=== PATIENT | female | born 1930 | race Caucasian/White ===

== ENCOUNTER 2016-07-17 05:30 | Day surgery (SDC) | payer MEDICARE ==
[2016-07-14 15:07] LABS: BASOPHILS 0.6 % (0-2); EOSINOPHILS 1.6 % (0-7); HEMATOCRIT 41.5 % (36.0-48.0); IMMATURE GRANULOCYTES 0.2 % (0-5); LYMPHOCYTES 20.8 % (15-50); MCH 29.4 pg (26.0-34.0); MCHC 33.7 g/dL (31.0-37.0); MCV 87.2 fL (80.0-100.0); MEAN PLATELET VOLUME 10.5 fL (7.4-10.4); MONOCYTES 11.5 % (2-11); NEUTROPHILS 65.3 % (40-80); PLATELET COUNT 195 10x3/uL (130-400); RBC 4.76 10x6/uL (4.00-5.40); RDW 12.7 % (11.5-14.5); WBC 6.3 10x3/uL (4.8-10.8)
[2016-07-14 15:16] LABS: CALCIUM 9.1 mg/dL (8.5-10.1); CARBON DIOXIDE 33.3 mmol/L (21.0-32.0); CREATININE - SERUM 1.2 mg/dL (0.6-1.3); POTASSIUM - SERUM 4.3 mmol/L (3.5-5.1)
[~2016-07-17] VITALS: Ht 154.9 cm; Wt 63.5 kg
[~2016-07-17 05:30] MED LIST: ALENDRONATE SOD70 MG PO; HYDROCODONE-APA1 TAB PO; HYZAAR 100-12.51 TAB PO; NORCO 10/325 TA1 TA1 PO; NORVASC5 MG PO; PRAVACHOL40 MG PO; TOPROL XL50 MG PO
[2016-07-17 05:51] VITALS: BP 180/91; Ht 154.9 cm; Wt 63.5 kg
[2016-07-17] MEDS ORDERED: HYDROCODONE-APA1 TAB PO (08:31)
--- NOTE | 2016-07-17 09:53 | NUR ---
5288 DISCHARGE INSTRUCTIONS REVIEWED WITH PATIENT AND SLING APPLIED; VERBALIZED UNDERSTANDING
--- NOTE | 2016-07-17 14:41 | OP ---
PATIENT NAME: ROCKY COLÓN MEDICAL RECORD: [id number] :30 LOCATION:[facility] ADMISSION DATE: SURGEON: KODAK SERRANO MD DATE OF OPERATION: 07/17/2016 PREOPERATIVE DIAGNOSIS: Left trigger finger. POSTOPERATIVE DIAGNOSIS: Left trigger finger. PROCEDURE: A1 jacinto release of left trigger finger. SURGEON: Kodak Serrano MD. ANESTHESIA: General. INTRAOPERATIVE COMPLICATIONS: None. SUMMARY OF PATHOLOGIC FINDINGS: The patient had a very tight A1 jacinto with excoriation of the flexor tendon, but no complete tearing. OPERATIVE SUMMARY IN DETAIL: After obtaining the appropriate orthopedic surgery consent as well as anesthetic consultation, evaluation and clearance, the patient was brought to the operating room and placed on the operating table in supine position. After general laryngeal mask was administered, tourniquet was placed about the proximal aspect of the left upper extremity. Left upper extremity was then prepped and draped in a routine sterile fashion. Leg arm was elevated and exsanguinated, tourniquet inflated to 250 mmHg. An incision was made at the base of the A1 jacinto. Dissection was carried down to the A1 jacinto. Care was taken to identify both digital nerves. The A1 jacinto was released in its entirety. The wound was then irrigated and closed with 4-0 Prolene. The area was locally injected with half and half lidocaine and Marcaine. Sterile dressings were applied. Tourniquet was deflated. The patient was awakened and taken to recovery room in stable condition. All final needle and sponge counts were correct. TRANSINT:[id number] Voice Confirmation ID: [id number] DOCUMENT ID: [id number] KODAK SERRANO MD at 1441 CC: [id number] DICTATION DATE: 07/17/16 0829 AGENCY CASHIER: 07/17/16 1434 [facility] 07/17/16 [place] [id number]
== END 2016-07-17 09:45 | disposition home or self-care (01) ==
LOC: D.OPS 05:30 → D.PAN 09:00 → D.OPS 09:00
PROVIDERS: Anesthesiology
DX: M65.342 Trigger finger, left ring finger (principal); I10 Essential (primary) hypertension; Z95.0 Presence of cardiac pacemaker; Z01.812 Encounter for preprocedural laboratory examination

== ENCOUNTER 2017-10-22 17:47 | Emergency (ER) | payer MEDICARE ==
[~2017-10-22] VITALS: Ht 154.9 cm; Wt 59.1 kg
[2017-10-22 18:02] VITALS: Ht 154.9 cm; Wt 59.1 kg
[2017-10-22 21:24] LABS: BASOPHILS 0.2 % (0-2); EOSINOPHILS 2.3 % (0-7); HEMATOCRIT 42.2 % (36.0-48.0); HEMOGLOBIN 14.7 g/dL (12-16); IMMATURE GRANULOCYTES 0.2 % (0-5); MCHC 34.8 g/dL (31.0-37.0); MCV 86.1 fL (80.0-100.0); MEAN PLATELET VOLUME 9.8 fL (7.4-10.4); NEUTROPHILS 69.3 % (40-80); PLATELET COUNT 197 10x3/uL (130-400); RDW 12.7 % (11.5-14.5)
[2017-10-22 22:06] LABS: ALBUMIN 3.6 g/dL (3.4-5.0); ALKALINE PHOSPHATASE 65 U/L (46-116); ALT (SGPT) 28 U/L (10-68); BILIRUBIN - TOTAL 0.46 mg/dL (0.2-1.3); CALC OSMOLALITY 292 mosm/kg (275-300); CALCIUM 9.4 mg/dL (8.5-10.1); CARBON DIOXIDE 32.6 mmol/L (21.0-32.0); CHLORIDE - SERUM 101 mmol/L (98-107); GLUCOSE 110 mg/dL (74-106); SODIUM 142 mmol/L (136-145); UREA NITROGEN 38 mg/dL (7-18); eGFR NON AFRICAN AMERICAN 56 mL/min (90-120)
[2017-10-22 22:10] LABS: TROPONIN-I < 0.017 ng/mL (0.000-0.060)
[2017-10-23 00:13] VITALS: BP 182/90
== END 2017-10-23 00:13 | disposition home or self-care (01) ==
LOC: D.ER 17:47
PROVIDERS: Family Medicine
DX: S01.01XA Laceration without foreign body of scalp, initial encounter (principal); W18.30XA Fall on same level, unspecified, initial encounter; Y93.89 Activity, other specified; Y92.017 Garden or yard in single-family (private) house as the place of occurrence of the external cause; R42 Dizziness and giddiness; I10 Essential (primary) hypertension; Z95.0 Presence of cardiac pacemaker

== ENCOUNTER 2018-04-05 13:38 | Observation (INO) | payer MEDICARE ==
[~2018-04-05] VITALS: Ht 154.9 cm; Wt 60.5 kg
[2018-04-05 13:53] VITALS: BP 188/72
[2018-04-05] MEDS ORDERED: PRINZIDE 20/12.1 TA1 PO (13:54)
[2018-04-05] MEDS ORDERED: BETAPACE 80 MG80 MG PO (13:55)
--- NOTE | 2018-04-05 14:25 | NUR ---
REP WITH [employer] CALLED AND SAID THE PATIENT'S PACEMAKER CHECKED OUT NORMAL WITH NO EVENTS AND A BATTERY LIFE OF 9.5 YEARS.
[2018-04-05 14:40] LABS: BASOPHILS 0.5 % (0-2); EOSINOPHILS 1.3 % (0-7); HEMATOCRIT 40.6 % (36.0-48.0); HEMOGLOBIN 14.2 g/dL (12-16); IMMATURE GRANULOCYTES 0.2 % (0-5); LYMPHOCYTES 15.1 % (15-50); MCH 29.9 pg (26.0-34.0); MCV 85.5 fL (80.0-100.0); MEAN PLATELET VOLUME 9.9 fL (7.4-10.4); MONOCYTES 8.9 % (2-11); PLATELET COUNT 231 10x3/uL (130-400); RBC 4.75 10x6/uL (4.00-5.40); RDW 12.2 % (11.5-14.5); WBC 9.2 10x3/uL (4.8-10.8)
[2018-04-05 14:56] LABS: ALBUMIN 3.5 g/dL (3.4-5.0); ALKALINE PHOSPHATASE 58 U/L (46-116); ALT (SGPT) 28 U/L (10-68); BILIRUBIN - TOTAL 0.44 mg/dL (0.2-1.3); CALC OSMOLALITY 273 mosm/kg (275-300); CALCIUM 9.3 mg/dL (8.5-10.1); CARBON DIOXIDE 31.8 mmol/L (21.0-32.0); CHLORIDE - SERUM 96 mmol/L (98-107); GLUCOSE 101 mg/dL (74-106); POTASSIUM - SERUM 4.2 mmol/L (3.5-5.1); PROTEIN - SERUM 7.1 g/dL (6.4-8.2); SODIUM 135 mmol/L (136-145); UREA NITROGEN 24 mg/dL (7-18); eGFR NON AFRICAN AMERICAN 55 mL/min (90-120)
[2018-04-05 15:00] LABS: APTT 31.4 SECONDS (22.8-39.4); INR 0.99 (0.85-1.17); PROTIME 12.6 SECONDS (11.6-15.0)
[2018-04-05 15:13] LABS: CKMB 3.6 U/L (0.0-3.6); CREATINE KINASE 84 UL (21-215); MAGNESIUM - SERUM 2.1 mg/dL (1.8-2.4)
[2018-04-05 15:17] LABS: TROPONIN-I 0.728 ng/mL (0.000-0.060)
--- NOTE | 2018-04-05 15:25 | NUR ---
CRITICAL LAB CALLED FROM [facility]KEY: TROPONIN 0.728. ALEX INFORMED AND DR. LINDA NOTIFIED.
[2018-04-05 15:50] VITALS: BP 163/95
--- NOTE | 2018-04-05 16:18 | NUR ---
CARDIOLOGY AT BEDSIDE.
[2018-04-05 17:13] LABS: CREATINE KINASE 88 UL (21-215)
[2018-04-05 17:22] LABS: TROPONIN-I 0.916 ng/mL (0.000-0.060)
[2018-04-05 18:12] VITALS: BP 220/106; BMI 25.3
--- NOTE | 2018-04-05 20:05 | NUR ---
INITIAL ROUNDS COMPLETED AT 1910 HRS. PT DENIED ANY DISCOMFORT. ASSESSMENT COMPLETED AT 1950 HRS. VSS. SR PER CM HR 80. ALERT AND ORIENTED TO PERSON, PLACE AND TIME. IV TO LAC SL. O2 2LNC. LUNGS CTA. JOHN. SR UP X2, CALL LIGHT WITHIN REACH.
[2018-04-05 20:06] VITALS: BP 128/68
--- NOTE | 2018-04-05 23:00 | NUR ---
PM MEDS GIVEN PER ORDERS. PT CURRENTLY RESTING WITH EYES CLOSED. RESP EVEN AND REGULAR. SRUP X2, CALL LIGHT WITHIN REACH.
[2018-04-05 23:10] LABS: CKMB 4.3 U/L (0.0-3.6); CREATINE KINASE 82 UL (21-215)
[2018-04-05 23:11] LABS: TROPONIN-I 0.985 ng/mL (0.000-0.060)
[2018-04-06 00:38] VITALS: BP 129/75
--- NOTE | 2018-04-06 01:41 | NUR ---
PT RESTING WITH EYES CLOSED. RESP EVEN AND REGULAR. SR UP X2, CALL LIGHT WITHIN REACH.
[2018-04-06 02:12] LABS: BASOPHILS 0.5 % (0-2); EOSINOPHILS 1.8 % (0-7); HEMATOCRIT 38.2 % (36.0-48.0); HEMOGLOBIN 13.4 g/dL (12-16); IMMATURE GRANULOCYTES 0.1 % (0-5); LYMPHOCYTES 22.1 % (15-50); MCH 29.9 pg (26.0-34.0); MCHC 35.1 g/dL (31.0-37.0); MCV 85.3 fL (80.0-100.0); MEAN PLATELET VOLUME 9.7 fL (7.4-10.4); MONOCYTES 9.5 % (2-11); PLATELET COUNT 204 10x3/uL (130-400); RBC 4.48 10x6/uL (4.00-5.40); RDW 12.2 % (11.5-14.5); WBC 8.7 10x3/uL (4.8-10.8)
[2018-04-06 02:21] LABS: CALC OSMOLALITY 269 mosm/kg (275-300); CALCIUM 8.7 mg/dL (8.5-10.1); CARBON DIOXIDE 31.2 mmol/L (21.0-32.0); CHLORIDE - SERUM 96 mmol/L (98-107); CKMB 3.4 U/L (0.0-3.6); CREATINE KINASE 68 UL (21-215); CREATININE - SERUM 1.1 mg/dL (0.6-1.3); GLUCOSE 98 mg/dL (74-106); POTASSIUM - SERUM 4.1 mmol/L (3.5-5.1); SODIUM 133 mmol/L (136-145); UREA NITROGEN 23 mg/dL (7-18); eGFR NON AFRICAN AMERICAN 50 mL/min (90-120)
[2018-04-06 02:27] LABS: TROPONIN-I 0.864 ng/mL (0.000-0.060)
--- NOTE | 2018-04-06 04:16 | NUR ---
PT RESTING WITH EYES CLOSED. RESP EVEN AND REGULAR. SR UP X2, CALL LIGHT WITHIN REACH.
[2018-04-06 04:29] VITALS: BP 101/53
--- NOTE | 2018-04-06 05:55 | NUR ---
VSS THROUGHOUT NIGHT. PT DENIED ANY DISCOMFORT. PT NPO UNTIL SEEN [facility] CARDIOLOGY THIS AM. NEEDS MET; WILL CONTINUE TO MONITOR.
--- NOTE | 2018-04-06 07:30 | NUR ---
RECEIVED PT IN BED AAOX4 RESP UNLABORED SKIN W/D DENIES ANY NEEDS OR DISCOMFORT WILL CONTINUE TO MONITOR
[2018-04-06 08:16] VITALS: Ht 154.9 cm; Wt 60.5 kg
[2018-04-06 10:50] VITALS: BP 142/52
[2018-04-06 20:28] LABS: APPEARANCE CLEAR (CLEAR); BILIRUBIN NEGATIVE (NEGATIVE); COLOR YELLOW (YELLOW); GLUCOSE NEGATIVE (NEGATIVE); KETONE NEGATIVE (NEGATIVE); NITRITE NEGATIVE (NEGATIVE); PROTEIN NEGATIVE (NEGATIVE); UROBILINOGEN NORMAL (NORMAL)
[2018-04-06 21:32] VITALS: BP 125/68
--- NOTE | 2018-04-06 21:49 | NUR ---
INITIAL ORUNDS COMPLETED AT 1910 HRS. PT DENIED ANY DISCOMFORT. ASSESSMENT COMPLETED AT 1945 HRS. VSS. SR/PACED PER CM HR 67. IV TO LAC SL. LUNGS CTA. PT UP AD MAYANK. GAIT EVEN AND STEADY. PM MEDS GIVEN. PT CURRENTLY RESTING WITH EYES CLOSED. RESP EVEN AND REGULAR. SR UP X2, CALL LIGHT WITHIN REACH.
[2018-04-06 23:55] VITALS: BP 125/57
--- NOTE | 2018-04-07 00:06 | NUR ---
PT RESTING WITH EYES CLOSED. RESP EVEN AND REGULAR. SR UP X2, CALL LIGHT WITHIN REACH.
--- NOTE | 2018-04-07 02:10 | NUR ---
PT RESTING WITH EYES CLOSED. RESP EVEN AND REGULAR. SR UP X2, CALL LIGHT WITHIN REACH.
[2018-04-07 03:55] VITALS: BP 137/52
--- NOTE | 2018-04-07 04:57 | NUR ---
VSS. PT DENIED JJ DISCOMFORT. CALL LIGHT WITHIN REACH.
--- NOTE | 2018-04-07 05:36 | NUR ---
VSS THROUGHOUT NIGHT. SR/PACED PER CM. PT DENIED ANY DISCOMFORT. NEEDS MET; WILL CONTINUE TO MONITOR.
--- NOTE | 2018-04-07 07:00 | NUR ---
RECEIVED REPORT. ASSUMED CARE OF PATIENT. CALL LIGHT WITHIN REACH. PATIENT SITTING TO SIDE OF BED WITH ATTENTION TOWARD ELECTRONIC TABLET PLAYING A CARD GAME. RESP EVEN AND UNLABORED. DENIES CHEST PAIN. NO DISTRESS.
[2018-04-07 09:40] VITALS: BP 110/70
--- NOTE | 2018-04-07 10:49 | NUR ---
20 GAUGE IV REMOVED FROM LEFT AC. CATHETER TIP INTACT. NO BLEEDING FROM SITE. TOLERATED IV REMOVAL WELL. PATIENT BEING DISCHARGED TO HOME. DISCHARGE INSTRUCTIONS PROVIDED AT 1045. WENT OVER DISCHARGE INSTRUCTIONS AND MEDICATIONS TWICE. PATIENT VERBALIZED UNDERSTANDING OF MEDICATIONS, NPO AFTER MN, TO RETURN TO OUTPATIENT AT 0800 IN THE AM FOR HEARTCATH AT 1000.
--- NOTE | 2018-04-07 10:59 | NUR ---
PATIENT LEFT UNIT VIA WHEELCHAIR WITH ALL PERSONAL BELONGINGS. PATIENT LEFT UNIT IN NO DISTRESS. PATIENT DISCHARGED TO HOME WITH HER .
--- NOTE | 2018-04-08 08:16 | MORECARE ---
CASE MANAGEMENT DISCHARGE SUMMARY PATIENT: ROCKY COLÓN UNIT: [id number] ADM DATE: 04/05/18 AGE: 87 : 30 SEX: F ROOM/BED: D.3753 AUTHOR: GILMA SPAIN PHYSICIAN: REFERRING PHYSICIAN: DARRYL CORDON M.D. DATE OF SERVICE: 04/08/18 Discharge Plan Patient Name: ROCKY COLÓN Facility: [facility]:[place] : 1930 Planned Disposition: Home Anticipated Discharge Date: 04/07/18 Discharge Date: 04/07/2018 Expected LOS: 2 Initial Reviewer: [email or web address] Initial Review Date: 04/08/2018 Generated: 04/08/18 9:16 am Patient Name: ROCKY COLÓN Page [id number] at 0816 All edits/amendments must be made on the electronic document DICTATION DATE: 04/08/18814 TUMBLERS SUPERVISOR: JENNIFFER 04/08/18814 RPT#: [id number] DC DATE:04/07/18 STATUS: DIS IN [facility] [address] [place] [address] END OF REPORT
== END 2018-04-07 10:55 | disposition home or self-care (01) ==
LOC: D.ER 13:38 → D.EDHOLD 16:54 → D.M2 16:54 → OBSVTIME 04-07 10:50 → D.M2 04-07 10:55
PROVIDERS: Family Medicine; ADMIT Internal Medicine Cardiovascular Disease
DX: I20.0 Unstable angina (principal); I10 Essential (primary) hypertension; Z95.0 Presence of cardiac pacemaker; I48.0 Paroxysmal atrial fibrillation; R79.89 Other specified abnormal findings of blood chemistry

== ENCOUNTER 2018-04-08 09:21 | Outpatient (CLI) | payer MEDICARE ==
[~2018-04-08] VITALS: Ht 154.9 cm; Wt 60.9 kg
--- NOTE | ~2018-04-08 | HEMODYNAMI ---
PATIENT:ROCKY COLÓN MEDICAL RECORD: [id number] : 30 LOCATION:[facility] ADMISSION DATE: 04/08/18 Generatedon:04/08/201811:14 Patient name: ROCKY COLÓN Patient #: [id number] SSN: : 1930 Date of study: 04/08/2018 Page: Of Hemodynamic Procedure Report Patient Data Patient Demographics Procedure consent was obtained First Name: ROCKY Gender: Female Last Name: ELDON : 1930 [facility] Initial: J Age: 87 year(s) Patient #: [id number] Race: Unknown Additional ID: [id number] Contact details [address]: [address] [place] [address] [place] [place] State: [place] City: [facility] Zip code: [address] Past Medical History Allergies: No known allergies Admission Admission Data Admission Date: 04/08/2018 Admission Time: 9:21 Admit Source: Other Height (in.): 60.63 Height (cm.): 154 Lab Results Lab Result Date: 04/08/2018 Lab Result Time: 10:05 Biochemistry Name Units Result Min Max BUN mg/dl 27 --(----)-* 7 18 Creatinine mg/dl 1 --(--*-)-- 0.6 1.3 CBC Name Units Result Min Max Hematocrit % 40.9 -*(----)-- 42 54 Hemoglobin g/dl 14.4 --(*---)-- 13.5 17.5 Procedure Procedure Types Cath Procedure Diagnostic Procedure LHC LHC w/Coronaries Procedure Description Procedure Date Procedure Date: 04/08/2018 Procedure Start Time: 11:01 Procedure End Time: 11:14 Procedure Staff Name Function Fredrick Galarza MD Performing Physician Patricio Pryor RT Monitor Arcelia Ibrahim RT Scrub Teetee Esposito RN Nurse Procedure Data Cath Procedure Fluoroscopy Diagnostic fluoroscopy Total fluoroscopy Time: 1.4 time: 1.4 min min Diagnostic fluoroscopy Total fluoroscopy dose: 243 dose: 243 mGy mGy Contrast Material Contrast Material Type Amount (ml) Isovue 300 45 Entry Location Entry Primary Successful Side Size Upsize Upsize Entry Closure Succes sful Closure Location (Fr) 1 (Fr) 2 (Fr) Remarks Device Remarks Femoral Right 5 Fr Exoseal artery Estimated blood loss: 5 ml Diagnostic catheters Device Type Used For End Catheter Placement MULTIPACK JL 4.0 5Fr Procedure catheter MULTIPACK 3DRC 5Fr Procedure catheter MULTIPACK Pigtail 5 Fr Procedure catheter Procedure Complications No complications Procedure Medications Medication Administration Route Dosage 0.9% NaCl I.V. 100 ml/hr Oxygen etCO2 Nasal cannula 2 l/min Lidocaine 2% added to field 20 Heparin Flush Bag added to field 2 bags (1000units/500ml NS) Versed I.V. 2 mg Fentanyl I.V. 25 mcg Hemodynamics Rest HGB: 14.4 (g/dl) Heart Rate: 68 (bpm) Pressure Samples Time Site Value (mmHg) Purpose Heart Use Rate(bpm) 11:06 LV 181/-43,12 Snapshot 77 11:07 AO 163/58(99) Pullback 72 11:07 LV 170/1,15 Pullback 72 Gradients Valve Time Site 1 Site 2 Mean SEP/DFP Peak To Heart Use (mmHg) (sec/min) Peak Rate (mmHg) (bpm) Aortic 11:07 LV AO 10 24 7 72 170/1,15 163/58(99) Calculations Valve P-P Mean Valve Index Valve Source Name Gradient Area Flow (cm2) Aortic 7 10 7 10 Snapshots Pre Cath Intra NCS Post Cath Vital Signs Time Heart Resp SPO2 etCO2 NIBP (mmHg) Rhythm Pain Sedation Rate (ipm) (%) (mmHg) Status Level (bpm) 10:53:52 70 18 100 23.8 206/87(119) NSR 0 (11) 10(A) , No pain 10:58:22 72 14 99 25.6 159/82(124) NSR 0 (11) 10(A) , No pain 11:02:44 65 12 98 26.7 150/74(93) NSR 0 (11) 9(A) , No pain 11:07:10 73 11 99 25.4 140/71(106) NSR 0 (11) 9(A) , No pain 11:12:30 64 13 99 26.8 151/70(120) NSR 0 (11) 10(A) , No pain Medications Time Medication Route Dose Verified Delivered Reason Notes Eff ectiveness by by 10:52:38 0.9% NaCl I.V. 100 Fredrick Teetee used for ml/hr Geovanni Esposito public health social worker 10:52:44 Oxygen etCO2 2 Fredrick Teetee used for Nasal l/min Geovanni Esposito procedure cannula RN 10:52:50 Lidocaine 2% added 20ml Fredrick Fredrick for local to vial Geovanni Galarza MD anesthetic field 10:52:55 Heparin Flush added 2 Fredrick Fredrick used for Bag to bags Geovanni Galarza MD procedure (1000units/500ml field NS) 10:57:11 Versed I.V. 2 mg Fredrick Teetee for Geovanni Esposito sedation RN 10:57:16 Fentanyl I.V. 25 Fredrick Teetee for mcg Geovanni Esposito sedation superintendent plant Log Time Note 10:39:23 Informed consent obtained and on chart 10:39:26 Admit Source: Other 10:39:45 Diagnostic Cath status Elective 10:39:47 Arcelia Ibrahim RT(R) sent for patient. Start room use. 10:39:48 Time tracking: Regular hours (M-F 7:00 - 5:00) 10:39:51 Plan of Care:Hemodynamics will remain stable., Cardiac rhythm will remain stable., Comfort level will be maintained., Respiratory function will remain adequate., Patient/ family verbilizes understanding of procedure., Procedure tolerated without complication., Recovers from procedure without complications.. 10:40:22 Patient Height : 60.63 inches 10:45:13 Patient received from Pre/Post Procedure Room to CCL 1 Alert and oriented. Tansferred to table in Supine position. 10:45:15 Warm blankets applied, and sherry hugger turned on for patient comfort. 10:45:15 Correct patient and procedure confirmed by team. 10:45:16 ECG and BP/O2 sat monitors applied to patient. 10:45:17 Pre-procedure instructions explained to patient. 10:45:17 Pre-op teaching completed and patient verbalized understanding. 10:45:28 H&P Date Dictated: 04/05/2018 Within 30 days and on chart., H&P Addendum completed by physician on day of procedure. (MUST COMPLETE FOR ALL OUTPATIENTS). 10:45:31 Family in waiting room. 10:45:32 Patient NPO since Midnight. 10:45:38 Patient allergic to No known allergies 10:51:21 Vital chart was started 10::38 0.9% NaCl 100 ml/hr I.V. was administered by Teetee Esposito RN; used for procedure; 10:52:44 Oxygen 2 l/min etCO2 Nasal cannula was administered by Teetee Esposito RN; used for procedure; 10::50 Lidocaine 2% 20ml vial added to field was administered by Fredrick Galarza MD; for local anesthetic; 10:52:55 Heparin Flush Bag (1000units/500ml NS) 2 bags added to field was administered by Fredrick Galarza MD; used for procedure; 10:55:22 Baseline sample Acquired. 10:55:29 Rhythm: sinus rhythm , paced 10:55:32 Is the patient allergic to Iodine/contrast media? No. 10:55:34 Is patient on blood thinner?No 10:55:35 Patient diabetic? No. 10:55:38 Previous problem with sedation/anesthesia? No ? 10:55:41 Snore? No 10:55:42 Sleep apnea? No 10:55:43 Deviated septum? No 10:55:43 Opens mouth fully? Yes 10:55:44 Sticks out tongue? Yes 10:55:46 Airway obstruction? No ? 10:55:49 Dentures? No ? 10:55:51 Pre procedure: right dorsailis pedis pulse 1+ Palpable, but thready & weak; easily obliterated 10:55:56 Patient pain scale 0/10 ?. 10:56:00 IV patent on arrival in left forearm with 0.9% NaCl at [facility]. 10:56:30 Lab Result : BUN 27 mg/dl 10:56:30 Lab Result : Creatinine 1 mg/dl 10:56:30 Lab Result : Hematocrit 40.9 % 10:56:30 Lab Result : Hemoglobin 14.4 g/dl 10:56:32 Lab results completed and on chart. 10:56:35 Right groin area was prepped with chlora-prep and draped in sterile fashion 10:56:36 Alarms reviewed by R. N. 10:56:36 Sharps counted by scrub and verified by R.N. 10:56:39 Use device set Femoral Dx 10:56:40 ACIST Syringe (33937) opened to sterile field. 10:56:40 Bag Decanter (2002S) opened to sterile field. 10:56:42 ACIST Manifold (29333) opened to sterile field. 10:56:43 ACIST Hand Control (20075) opened to sterile field. 10:56:45 Tegaderm 4 x 4 (1626W) opened to sterile field. 10:56:45 SHEATH 5FR [place] (JYT245) opened to sterile field. 10:56:47 DIAGNOSTIC Multipack 5Fr catheter set (BD4203) opened to sterile field. 10:56:48 Medline Cath Pack ([id number]) opened to sterile field. 10:56:49 DIAGNOSTIC WIRE .035 260cm J wire (559357) opened to sterile field. 10:56:54 Physician arrived 10:56:54 --------ALL STOP TIME OUT------ 10:56:55 Final Timeout: patient, procedure, and site verified with staff and physician. All members of the team are in agreement. 10:56:56 Right groin site verified by team. 10:56:58 Physical assessment completed. ASA score P 2 - A patient with mild systemic disease as per Fredrick Galarza MD. 10:57:00 Sedation plan: IV Moderate Sedation Medication:Versed, Fentanyl 10:57:11 Versed 2 mg I.V. was administered by Teetee Esposito RN; for sedation; 10:57:16 Fentanyl 25 mcg I.V. was administered by Teetee Esposito RN; for sedation; 11:00:13 Zero performed for pressure channel P1 11:01:05 Procedure started. 11:01:05 Full Disclosure recording started 11:01:08 Local anesthetic to right femoral artery with Lidocaine 2% by Fredrick Galarza MD.INITIAL ACCESS ONLY 11:01:30 A 5 Fr sheath was inserted into the Right Femoral artery 11:01:48 A MULTIPACK JL 4.0 5Fr catheter was advanced over the wire and used for Procedure. 11:02:32 LCA angiography performed. 11:04:09 Catheter exchanged over wire. 11:04:14 A MULTIPACK 3DRC 5Fr catheter was advanced over the wire and used for Procedure. 11:05:04 RCA angiography performed. 11:05:40 Catheter exchanged over wire. 11:05:47 A MULTIPACK Pigtail 5 Fr catheter was advanced over the wire and used for Procedure. 11:07:03 LV gram done using NERI 11:07:06 Injector settings: Ml/sec: 10, Volume: 20, 11:07:15 EF : 55 % 11:07:17 LV hemodynamics recorded. 11:09:10 Catheter removed. 11:09:15 EXOSEAL 5Fr (EX500) opened to sterile field. 11:09:22 Sheath removed intact; hemostasis achieved with Exoseal to the Right Femoral artery. 11:09:24 Procedure ended.(Physican Out) 11:13:05 Fluoroscopy time 01.40 minutes. 11:13:10 Fluoroscopy dose: 243 mGy 11:13: Flurop Dose total: 243 11:13: Contrast amount:Isovue 300 45ml. 11:13:14 Sharps counted by scrub and verified by R.N. 11:13:15 Insertion/operative site no bleeding no hematoma. 11:13:17 Post-op/insertion site Right Femoral artery dressed using a 4 x 4 and Tegaderm. 11:13:19 Post right femoral artery:stable, soft, clean and dry 11:13:21 Post Procedure Pulses reassessed and unchanged 11:13:23 Post-procedure physical assessment completed. ASA score P 2 - A patient with mild systemic disease as per Fredrick Galarza MD. 11:13:25 Post procedure rhythm: unchanged. 11:13:29 Estimated blood loss: 5 ml 11:13:30 Post procedure instruction explained to patient.Patient verbalizes understanding. 11:13:31 Patient needs reinforcement of post procedure teaching. 11:14:16 Procedure and supply charges have been captured, reviewed, submitted and are correct. 11:14:18 Procedure Complication : No complications 11:14:20 Vital chart was stopped 11:14:20 See physician's report for complete and final results. 11:14:21 Report given to Pre/Post Procedure Room. 11:14:23 Patient transfered to Pre/Post Procedure Room with Stretcher. 11:14:25 Procedure ended. 11:14:25 Full Disclosure recording stopped 11:14:28 End room use (Document Last) Device Usage Item Name Manufacture Quantity Catalog Hospital Part Current Minimal L ot# / Number Charge Number Stock Stock Serial# Code [facility] 1 96836 [id number] 535463 993790 20 Syringe Medical (68934) Systems Inc Bag Microtek 1 2001S 033016 54183 369727 5 Decanter Medical Inc. (2001S) ACIST Acist 1 47603 221227 996351 780145 5 Manifold Medical (96366) Systems Inc ACIST Hand Acist 1 16413 611453 168027 420326 5 Control Medical (91181) Systems Inc Tegaderm 4 3M 1 1626W 677161 602585 584568 5 x 4 (1626W) SHEATH 5FR Terumo 1 [id number] 278084 969898 672085 5 [place] (CQS054) DIAGNOSTIC Cardinal 1 CG9197 229698 42226 228113 30 Multipack Health 5Fr catheter set (KQ1863) Medline Medline 1 [id number] 538499 43513 993624 5 Cath Pack ([id number]) DIAGNOSTIC St Jerry 1 945623 116851 030353 718408 30 WIRE .035 260cm J wire (562691) MULTIPACK Cardinal 1 123889 5 JL 4.0 5Fr Health catheter MULTIPACK Cardinal 1 347895 5 3DRC 5Fr Health catheter MULTIPACK Cardinal 1 456499 5 Pigtail 5 Health Fr catheter EXOSEAL 5Fr Cardinal 1 EX500 029301 997746 423847 10 (EX500) Health Signature Audit [place] Stage Time Signature Unsigned Intra-Procedure 04/08/2018 Patricio Pryor 11:14:48 AM RT(R) Signatures Monitor : Patricio Pryor RT Signature : Date : Time : [place] [address] [place] [address]
[~2018-04-08 09:21] MED LIST changes: +BETAPACE 80 MG80 MG PO; +PRINZIDE 20/12.1 TA1 PO
[2018-04-08 09:53] VITALS: BP 166/67; Ht 154.9 cm; Wt 60.9 kg
[2018-04-08 10:11] LABS: BASOPHILS 0.5 % (0-2); EOSINOPHILS 1.1 % (0-7); HEMATOCRIT 40.9 % (36.0-48.0); HEMOGLOBIN 14.4 g/dL (12-16); IMMATURE GRANULOCYTES 0.2 % (0-5); LYMPHOCYTES 16.3 % (15-50); MCH 29.2 pg (26.0-34.0); MCHC 35.2 g/dL (31.0-37.0); MONOCYTES 8.5 % (2-11); NEUTROPHILS 73.4 % (40-80); RBC 4.93 10x6/uL (4.00-5.40); RDW 12.3 % (11.5-14.5); WBC 9.4 10x3/uL (4.8-10.8)
[2018-04-08 10:19] LABS: PLATELET COUNT 254 10x3/uL (130-400)
[2018-04-08 10:25] LABS: ANION GAP 15.2 mmol/L (8-16); CALCIUM 9.1 mg/dL (8.5-10.1); CARBON DIOXIDE 27.1 mmol/L (21.0-32.0); POTASSIUM - SERUM 3.3 mmol/L (3.5-5.1)
--- NOTE | 2018-04-08 11:40 | NUR ---
DR. CORDON ROUNDED. NO FAMILY AT BEDSIDE AND PT STILL SLEEPING. HE REPORTS HE WILL CALL THE .
--- NOTE | 2018-04-08 12:05 | NUR ---
RIGHT GROIN DRESSING C/D/I. NO S/S OF HEMATOMA NOTED. VSS. RIGHT PEDAL PULSE PALPABLE.
--- NOTE | 2018-04-08 12:20 | NUR ---
RIGHT GROIN DRESSING C/D/I. NO S/S OF HEMATOMA NOTED. VSS. RIGHT PEDAL PULSE PALPABLE. HEAD OF BED INCREASED TO 30 DEGREES. TOLERATED WELL. SET UP WITH LUNCH TRAY.
--- NOTE | 2018-04-08 12:49 | NUR ---
CALLED AND SPOKE WITH PT'S . HE STATES THAT HE WILL BE AT THE HOSPITAL AT 1:30 TO A R COLLECTIONS REP HIS . PT'S RIGHT GROIN DRESSING C/D/I. NO S/S OF HEMATOMA NOTED. VSS AT THIS TIME. TOLERATING FOOD AND WATER.
--- NOTE | 2018-04-08 13:20 | NUR ---
LEFT HAND PIV D/C'D WITH CATH TIP INTACT. PT TOLERATED WELL. PT UP AND DRESSED. TAKEN TO RESTROOM AND VOIDED WITHOUT DIFFICUTLTY.
--- NOTE | 2018-04-08 13:35 | NUR ---
DISCUSSED DISCHARGE INSTRUCTIONS WITH PT. SHE VOICED UNDERSTANDING. RIGHT GROIN DRESSING C/D/I. NO S/S OF HEMATOMA NOTED.
--- NOTE | 2018-04-08 13:40 | NUR ---
DR. CORDON SPOKE WITH PT REGARDING PLAN OF CARE. TO SEE HER BACK IN OFFICE IN 1 WEEK. PT TAKEN OUT TO VEHICLE BY WHEELCHAIR. NO S/S OF DISTRESS NOTED.
== END 2018-04-08 13:40 | disposition home or self-care (01) ==
LOC: D.CATH 09:21
PROVIDERS: Internal Medicine Cardiovascular Disease
DX: I25.110 Atherosclerotic heart disease of native coronary artery with unstable angina pectoris (principal); Z01.812 Encounter for preprocedural laboratory examination

== ENCOUNTER 2018-04-23 08:06 | Inpatient (IN) | payer MEDICARE ==
[~2018-04-23] VITALS: Ht 154.9 cm; Wt 63.6 kg
--- NOTE | ~2018-04-23 | HEMODYNAMI ---
PATIENT:ROCKY COLÓN MEDICAL RECORD: [id number] : [birth year] LOCATION:[facility] [address] [facility]# [id number] ADMISSION DATE: 04/23/18 Generatedon:04/24/20188:27 Patient name: ROCKY COLÓN Patient #: [id number] SSN: : 1930 Date of study: 04/24/2018 Page: Of Hemodynamic Procedure Report Patient Data Patient Demographics Procedure consent was obtained First Name: ROCKY Gender: Female Last Name: ELDON : 1930 [facility] Initial: J Age: 87 year(s) Patient #: [id number] Race: Unknown Additional ID: [id number] Contact details Address: [address] [place] [address] [place]: [place] City: [facility] Zip code: [address] Past Medical History Allergies: No known allergies Admission Admission Data Admission Date: 04/23/2018 Admission Time: 8:06 Room #: D.2118 Procedure Procedure Types Cath Procedure Diagnostic Procedure Sedation Charges Moderate Sedation up to 15 minutes PCI Procedure Coronary Stent Coronary Stent Initial x2 Peripheral Cath 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 Peripheral Procedures Hqnvz-Dtstrds-Tkf-Off Procedure Description Procedure Date Procedure Date: 04/24/2018 Procedure Start Time: 8:07 Procedure End Time: 8:26 Procedure Staff Name Function Mario Alaniz MD Performing Physician Darleen Dunn RT Monitor Tracey Whitlock RN Nurse Jolynn Marley RT Scrub Geovanna Shannon RT Scrub Procedure Data Cath Procedure Fluoroscopy Diagnostic fluoroscopy Total fluoroscopy Time: 124 time: 124 min min Diagnostic fluoroscopy Total fluoroscopy dose: 281 dose: 281 mGy mGy Contrast Material Contrast Material Type Amount (ml) Isovue 300 124 Entry Location Entry Primary Successful Side Size Upsize Upsize Entry Closure Succes sful Closure Location (Fr) 1 (Fr) 2 (Fr) Remarks Device Remarks Femoral Left 6 Fr Exoseal artery Short Estimated blood loss: 10 ml Diagnostic catheters Device Type Used For End Catheter Placement DIAGNOSTIC Pigtail 5Fr Abdominal catheter ([id number]) aortogram with runoff Procedure Complications No complications Procedure Medications Medication Administration Route Dosage Oxygen etCO2 Nasal cannula 2 l/min Lidocaine 2% added to field 20 Heparin Flush Bag added to field 2 bags (1000units/500ml NS) 0.9% NaCl I.V. 100 ml/hr Versed I.V. 1 mg Fentanyl I.V. 50 mcg Heparin Bolus I.V. 4000 units Hemodynamics Rest Heart Rate: 87 (bpm) Snapshots Pre Cath Intra NCS Post Cath Vital Signs Time Heart Resp SPO2 etCO2 NIBP (mmHg) Rhythm Pain Sedation Rate (ipm) (%) (mmHg) Status Level (bpm) 7:56:48 86 14 100 0 178/80(129) NSR 0 (11) 10(A) , No pain 8:01:08 83 15 97 0 156/70(129) NSR 0 (11) 10(A) , No pain 8:05:27 86 13 94 0 161/83(129) NSR 0 (11) 9(A) , No pain 8:09:46 85 12 95 0 165/90(124) NSR 0 (11) 9(A) , No pain 8:14:02 89 12 93 0 141/65(111) NSR 0 (11) 9(A) , No pain 8:19:10 93 14 96 28.7 168/90(125) NSR 0 (11) 9(A) , No pain 8:22:33 88 15 100 0 182/88(128) NSR 0 (11) 10(A) , No pain Medications Time Medication Route Dose Verified Delivered Reason Notes Effectiveness by by 7:45:56 Oxygen etCO2 2 Mario Tracey used for Nasal l/min Katty Whitlock RN procedure cannula 7:46:03 Lidocaine 2% added 20ml Mario Martin for local to vial Katty Alaniz MD anesthetic field 7:46:09 Heparin Flush added 2 Mario Martin used for Bag to bags Katty Alaniz MD procedure (1000units/500ml field NS) 7:46:16 0.9% NaCl I.V. 100 Mario Buffie Per physician ml/hr Katty Whitlock RN 8:02:10 Versed I.V. 1 mg Mario Webb for sedation Katty Whitlock RN 8:02:16 Fentanyl I.V. 50 Mario Buffie for sedation mcg Katty Whitlock RN 8:11:05 Heparin Bolus I.V. 4000 Mario Webb for veri ed units Katty Whitlock RN anticoagulation with dr alaniz Procedure Log Time Note 7:34:34 Time tracking: Regular hours (M-F 7:00 - 5:00) 7:34:38 Plan of Care:Hemodynamics will remain stable., Cardiac rhythm will remain stable., Comfort level will be maintained., Respiratory function will remain adequate., Patient/ family verbilizes understanding of procedure., Procedure tolerated without complication., Recovers from procedure without complications.. 7:36:00 Tracey Whitlock RN sent for patient. Start room use. 7:45:56 Oxygen 2 l/min etCO2 Nasal cannula was administered by Tracey Whitlock RN; used for procedure; 7:46:03 Lidocaine 2% 20ml vial added to field was administered by Mario Alaniz MD; for local anesthetic; 7:46:09 Heparin Flush Bag (1000units/500ml NS) 2 bags added to field was administered by Mario Alaniz MD; used for procedure; 7:46:16 0.9% NaCl 100 ml/hr I.V. was administered by Tracey Whitlock RN; Per physician; 7:47:45 Patient received from Med II to CCL 1 Alert and oriented. Tansferred to table in Supine position. 7:47:46 Warm blankets applied, and sherry hugger turned on for patient comfort. 7:47:47 Correct patient and procedure confirmed by team. 7:47:48 Signed procedure consent form obtained from patient. 7:47:49 ECG and BP/O2 sat monitors applied to patient. 7:47:50 Pre-procedure instructions explained to patient. 7:47:50 Pre-op teaching completed and patient verbalized understanding. 7:47:52 Family in patients room. 7:47:53 Patient NPO since Midnight. 7:48:05 Patient allergic to No known allergies 7:48:12 Is patient on blood thinner?Yes 7:48:14 ACC The patient was administered the following blood thiners within the last 24 hours: ACCPlavix 7:55:27 Vital chart was started 7:55:30 Rhythm: unchanged. 7:55:31 Full Disclosure recording started 7:55:51 H&P Date Dictated: 04/17/2018 Within 30 days and on chart., H&P Addendum completed by physician on day of procedure. (MUST COMPLETE FOR ALL OUTPATIENTS). 7:55:54 Is the patient allergic to Iodine/contrast media? No. 7:55:56 Patient diabetic? No. 7:55:59 Previous problem with sedation/anesthesia? No ? 7:56:00 Snore? No 7:56:01 Sleep apnea? No 7:56:02 Deviated septum? No 7:56:03 Opens mouth fully? Yes 7:56:03 Sticks out tongue? Yes 7:56:05 Airway obstruction? No ? 7:56:06 Dentures? No ? 7:56:13 Pre procedure: left dorsailis pedis pulse 2+ Normal; easily identifiable; not easily obliterated 7:56:15 Patient pain scale 0/10 ?. 7:56:21 IV patent on arrival in left forearm with 0.9% NaCl at O. 7:56:24 Lab results completed and on chart. 7:56:27 Left groin area was prepped with chlora-prep and draped in sterile fashion 7:56:29 Alarms reviewed by R. N. 7:56:29 Sharps counted by scrub and verified by R.N. 7:57:43 Use device set [facility] PCI 7:57:45 SHEATH 6FR [place] ([id number]) opened to sterile field. 7:58:01 INFLATOR Merit BasixCompak ([id number]) opened to sterile field. 7:58:06 CHOICE PT Extra Support 182cm wire ([id number]) opened to sterile field. 8:01:33 Final Timeout: patient, procedure, and site verified with staff and physician. All members of the team are in agreement. 8:01:35 Left groin site verified by team. 8:01:39 Fire Safety Assessment: A--An alcohol-based skin anteseptic being used preoperatively., C--Open oxygen or nitrous oxide is being used., D--An ESU, laser, or fiber-optic light is being used. 8:01:43 Physical assessment completed. ASA score P 2 - A patient with mild systemic disease as per Mario Alaniz MD. 8:01:46 Sedation plan: IV Moderate Sedation Medication:Versed, Fentanyl 8:02:10 Versed 1 mg I.V. was administered by Buffie Whitlock RN; for sedation; 8:02:16 Fentanyl 50 mcg I.V. was administered by Tracey Whitlock RN; for sedation; 8:03:48 Baseline sample Acquired. 8:07:05 Procedure started. 8:07:09 Local anesthetic to left femerol artery with Lidocaine 2% by Mario Alaniz MD.INITIAL ACCESS ONLY 8:08:02 Zero performed for pressure channel P1 8:08:40 A 6 Fr Short sheath was inserted into the Left Femoral artery 8:09:23 A DIAGNOSTIC Pigtail 5Fr catheter ([id number]) was advanced over the wire and used for Abdominal aortogram with runoff. 8:10:04 Catheter removed. 8:10:18 GUIDE 6FR XBLAD 3.5 catheter ([id number]) opened to sterile field. 8:10:27 6 Fr XBLAD 3.5 guide catheter was inserted over the wire 8:11:05 Heparin Bolus 4000 units I.V. was administered by Tracey Whitlock RN; for anticoagulation; verified with dr alaniz 8:11:32 Guide Catheter removed. pressure damping. 8:12:21 GUIDE 6FR EBU 3.0 SH catheter ([id number]) opened to sterile field. 8:12:31 6 Fr EBU 3.0 SH guide catheter was inserted over the wire 8:13:29 CHOICE PT ES wire advanced. 8:16:01 Place stent Inflation Number: 1 A [place] RX 2.5 x 15 stent ([id number]) was prepped and advanced across the 1st Ob Ellie. The stent was deployed at 11 ANUM for 0:07 (min:sec). 8:16:48 Wire redirected to LAD. 8:16:58 Stent catheter was removed intact over wire. 8:18:11 Place stent Inflation Number: 1 A [place] RX 2.5 x 26 stent ([id number]) was prepped and advanced across the Mid LAD. The stent was deployed at 11 ANUM for 0:08 (min:sec). 8:18:44 Inflation number: 2 The stent balloon was then re-inflated across the Mid LAD to 15 ANUM for 0:08 (min:sec). 8:19:00 Stent catheter was removed intact over wire. 8:19:00 Wire removed. 8:19:01 Guide catheter removed. 8:19:09 Sheath removed intact; hemostasis achieved with Exoseal to the Left Femoral artery. 8:19:11 Procedure ended.(Physican Out) 8:19:24 EXOSEAL 6Fr (EX600) opened to sterile field. 8:20:10 Fluoroscopy time 124.00 minutes. 8:20:23 Flurop Dose total: 281 8:20:23 Fluoroscopy dose: 281 mGy 8:20:28 Contrast amount:Isovue 300 124ml. 8:20:30 Sharps counted by scrub and verified by R.N. 8:20:31 Insertion/operative site no bleeding no hematoma. 8:20:34 Post-op/insertion site Right Femoral artery dressed using a 4 x 4 and Tegaderm. 8:20:37 Post right femoral artery:stable, clean and dry 8:20:38 Post Procedure Pulses reassessed and unchanged 8:20:45 Post-procedure physical assessment completed. ASA score P 2 - A patient with mild systemic disease as per Mario Alaniz MD. 8:22:22 Post procedure rhythm: unchanged. 8:22:25 Estimated blood loss: 10 ml 8:22:26 Post procedure instruction explained to patient.Patient verbalizes understanding. 8:22:27 Patient needs reinforcement of post procedure teaching. 8:22:32 Procedure Complication : No complications 8:22:34 See physician's report for complete and final results. 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 8:24:36 Use device set Acist 8:24:38 ACIST Hand Control (71250) opened to sterile field. 8:24:39 ACIST Manifold (08559) opened to sterile field. 8:24:39 ACIST Syringe (15003) opened to sterile field. 8:24:49 DIAGNOSTIC WIRE .035 260cm J wire (069601) opened to sterile field. 8:25:00 SHEATH 6FR [place] (HSJ115) opened to sterile field. 8:26:36 Procedure and supply charges have been captured, reviewed, submitted and are correct. 8:26:37 Vital chart was stopped 8:26:40 Report given to Pre/Post Procedure Room. 8:26:43 Patient transfered to Pre/Post Procedure Room with Stretcher. 8:26:45 Procedure ended. 8:26:45 Full Disclosure recording stopped 8:26:48 End room use (Document Last) Intervention Summary Intervention Notes Time ActionType Lesion and Equipment Used Action# Pressure Duration Attributes 8:16:01 Place stent 1st Ob Ellie [place] RX 2.5 x 1 11 00:07 15 stent ([id number]) 8:18:11 Place stent Mid LAD [place] RX 2.5 x 1 11 00:08 26 stent ([id number]) 8:18:44 Reinflate Mid LAD [place] RX 2.5 x 2 15 00:08 stent 26 stent balloon ([id number]) Device Usage Item Name Manufacture Quantity Catalog Number [facility] Part Current M inimal Lot# / Charge Number Stock Stock Serial# Code SHEATH 6FR Terumo 2 [id number] [id number] 396372 4 0 [place] ([id number]) INFLATOR Merit Merit 1 [id number] 859057 278561 578221 1 5 [employer] [facility] (GP1512) CHOICE PT Alpine 1 [id number] 187517 165806 895218 5 Extra Support Scientific 182cm wire ([id number]) DIAGNOSTIC Cardinal 1 [id number] 062595 011263 059932 5 Pigtail 5Fr Health catheter ([id number]) GUIDE 6FR Cardinal 1 [id number] 436075 893843 314344 1 0 XBLAD 3.5 Health catheter ([id number]) GUIDE 6FR EBU Medtronic 1 [id number] 132588 62657 340608 0 3.0 catheter ([id number]) [place] RX 2.5 x Medtronic 1 [id number] 913036 2071271 272819 5 [id number] 15 stent ([id number]) [place] RX 2.5 x Medtronic 1 [id number] 845019 0431043 628630 5 [id number] 26 stent ([id number]) EXOSEAL 6Fr Cardinal 1 EX600 713946 115799 110867 1 0 (EX600) Health Tegaderm 4 x 4 3M 1 1626W 315698 315891 253223 5 (1626W) ACIST Hand Acist 1 88622 997282 255932 637877 5 Control Medical (91693) Systems Inc ACIST Manifold Acist 1 51285 042894 117950 688989 5 (55255) Medical Systems Inc ACIST Syringe Acist 1 68026 889163 025350 813149 2 0 (99581) Medical Systems Inc DIAGNOSTIC St Jerry 1 991461 901155 589506 270566 3 0 WIRE .035 260cm J wire (303669) Signature Audit [place] Stage Time Signature Unsigned Intra-Procedure 04/24/2018 Darleen 8:27:17 AM Counts RT(R) Signatures Monitor : Darleen Signature : Counts RT Date : Time : [address] [address]
--- NOTE | ~2018-04-23 | HEMODYNAMI ---
PATIENT:ROCKY COLÓN MEDICAL RECORD: [id number] : 30 LOCATION:[facility] ADMISSION DATE: 04/23/18 Generatedon:04/23/201810:41 Patient name: ROCKY COLÓN Patient #: [id number] SSN: : 1930 Date of study: 04/23/2018 Page: Of Hemodynamic Procedure Report Patient Data Patient Demographics Procedure consent was obtained First Name: ROCKY Gender: Female Last Name: ELDON : 1930 [facility] Initial: J Age: 87 year(s) Patient #: [id number] Race: Unknown Additional ID: [id number] Contact details Address: [address] [place] [address] [facility] State: [place] City: [facility] Zip code: [address] Past Medical History Allergies: No known allergies Admission Admission Data Admission Date: 04/23/2018 Admission Time: 8:06 Procedure Procedure Types Cath Procedure PCI Procedure Coronary Stent Coronary Stent Initial Procedure Description Procedure Date Procedure Date: 04/23/2018 Procedure Start Time: 10:27 Procedure End Time: 10:41 Procedure Staff Name Function Mario Alaniz MD Performing Physician Darleen Dunn RT Monitor Teetee Esposito RN Nurse Jolynn Marley RT Scrub Geovanna Shannon RT Scrub Procedure Data Cath Procedure Fluoroscopy Diagnostic fluoroscopy Total fluoroscopy Time: 3.2 time: 3.2 min min Diagnostic fluoroscopy Total fluoroscopy dose: 135 dose: 135 mGy mGy Contrast Material Contrast Material Type Amount (ml) Isovue 300 72 Entry Location Entry Primary Successful Side Size Upsize Upsize Entry Closure Succes sful Closure Location (Fr) 1 (Fr) 2 (Fr) Remarks Device Remarks Femoral Right 6 Fr Exoseal artery Short Estimated blood loss: 10 ml Procedure Complications No complications Procedure Medications Medication Administration Route Dosage 0.9% NaCl I.V. 100 ml/hr Oxygen etCO2 Nasal cannula 2 l/min Lidocaine 2% added to field 20 Heparin Flush Bag added to field 2 bags (1000units/500ml NS) Versed I.V. 2 mg Fentanyl I.V. 50 mcg Heparin Bolus I.V. 4000 units Integrilin (Bolus I.V. 5.6 ml 2mg/ml) Plavix P.O. 600 mg Nitroglycerin IC/IA I.C. 200 mcg Hemodynamics Rest Heart Rate: 68 (bpm) Snapshots Pre Cath Intra NCS Post Cath Vital Signs Time Heart Resp SPO2 etCO2 NIBP (mmHg) Rhythm Pain Sedation Rate (ipm) (%) (mmHg) Status Level (bpm) 10:12:01 73 17 98 34.5 211/97(156) NSR 0 (11) 10(A) , No pain 10:16:25 78 13 99 35 166/77(126) NSR 0 (11) 10(A) , No pain 10:20:49 82 11 98 37 168/79(131) NSR 0 (11) 10(A) , No pain 10:25:09 73 11 99 38 135/66(104) NSR 0 (11) 10(A) , No pain 10:29:21 74 12 98 20.7 132/74(103) NSR 0 (11) 9(A) , No pain 10:33:37 76 12 97 0.7 137/70(105) NSR 0 (11) 9(A) , No pain 10:37:53 85 14 96 36.7 141/77(113) NSR 0 (11) 10(A) , No pain 10:41:02 75 16 97 27 149/73(123) NSR 0 (11) 10(A) , No pain Medications Time Medication Route Dose Verified Delivered Reason Notes Effectiveness by by 10:12:06 0.9% NaCl I.V. 100 Mario Teetee used for ml/hr Katty Esposito family resource management specialist 10:12:12 Oxygen etCO2 2 Mario Teetee used for Nasal l/min Katty Esposito procedure cannula RN 10:12:21 Lidocaine 2% added 20ml Mario Martin for local to vial Katty Alaniz MD anesthetic field 10:12:26 Heparin Flush added 2 Mariorashid Abdirey used for Bag to bags Katty Alaniz MD procedure (1000units/500ml field NS) 10:25:22 Versed I.V. 2 mg Mario Teetee for sedation Katty Esposito RN 10:25:27 Fentanyl I.V. 50 Mario Teetee for sedation mcg Katty Esposito RN 10:30:05 Heparin Bolus I.V. 4000 Mario Kingsley for verif ied units Katty Esposito anticoagulation with Dr. ALE Alaniz 10:30:18 Integrilin I.V. 5.6 Mario Kingsley for waste d (Bolus 2mg/ml) ml Katty Esposito anticoagulation 4.4mL RN 10:30:45 Plavix P.O. 600 Mario Kingsley for mg Katty Esposito antiplatelet RN therapy 10:34:47 Nitroglycerin I.C. 200 Mario Martin for IC/IA mcg Katty Alaniz MD vasodilation Procedure Log Time Note 9:59:42 Time tracking: Regular hours (M-F 7:00 - 5:00) 9:59:45 Plan of Care:Hemodynamics will remain stable., Cardiac rhythm will remain stable., Comfort level will be maintained., Respiratory function will remain adequate., Patient/ family verbilizes understanding of procedure., Procedure tolerated without complication., Recovers from procedure without complications.. 10:00:15 Darleen Dunn RT(R) sent for patient. Start room use. 10:07:35 Patient received from Pre/Post Procedure Room to CCL 1 Alert and oriented. Tansferred to table in Supine position. 10:07:36 Warm blankets applied, and sherry hugger turned on for patient comfort. 10:07:37 Correct patient and procedure confirmed by team. 10:07:38 Signed procedure consent form obtained from patient. 10:07:39 ECG and BP/O2 sat monitors applied to patient. 10:07:42 Full Disclosure recording started 10:08:38 H&P Date Dictated: 04/17/2018 Within 30 days and on chart., H&P Addendum completed by physician on day of procedure. (MUST COMPLETE FOR ALL OUTPATIENTS). 10:08:43 Pre-procedure instructions explained to patient. 10:08:44 Pre-op teaching completed and patient verbalized understanding. 10:08:45 Family in patients room. 10:08:47 Patient NPO since Midnight. 10:08:55 Patient allergic to No known allergies 10:08:58 Is the patient allergic to Iodine/contrast media? No. 10:08:59 Is patient on blood thinner?Yes 10:09:03 ACC The patient was administered the following blood thiners within the last 24 hours: ACCPlavix 10:10:00 Vital chart was started 10:10:08 Patient diabetic? No. 10:10:17 Previous problem with sedation/anesthesia? No ? 10:10:19 Snore? No 10:10:20 Sleep apnea? No 10:10:21 Deviated septum? No 10:10:21 Opens mouth fully? Yes 10:10:22 Sticks out tongue? Yes 10:10:24 Airway obstruction? No ? 10:10:26 Dentures? No ? 10:10:29 Pre procedure: right dorsailis pedis pulse 2+ Normal; easily identifiable; not easily obliterated 10:10:31 Patient pain scale 0/10 ?. 10:10:37 IV patent on arrival in left forearm with 0.9% NaCl at [facility]. 10:10:39 Lab results completed and on chart. 10:10:44 Right groin area was prepped with chlora-prep and draped in sterile fashion 10:10:45 Alarms reviewed by R. N. 10:10:45 Sharps counted by scrub and verified by R.N. 10:12:04 Rhythm: sinus rhythm 10:12:06 0.9% NaCl 100 ml/hr I.V. was administered by Teetee Esposito RN; used for procedure; 10:12:12 Oxygen 2 l/min etCO2 Nasal cannula was administered by Teetee Esposito RN; used for procedure; 10:12:21 Lidocaine 2% 20ml vial added to field was administered by Mario Alaniz MD; for local anesthetic; 10:12:26 Heparin Flush Bag (1000units/500ml NS) 2 bags added to field was administered by Mario Alaniz MD; used for procedure; 10:12:33 Use device set CATH PACK 10:12:36 Use device set TAUTH PCI 10:12:38 ACIST Syringe (71532) opened to sterile field. 10:12:39 ACIST Hand Control (99996) opened to sterile field. 10:12:39 ACIST Manifold (02672) opened to sterile field. 10:12:40 Medline Cath Pack ([id number]) opened to sterile field. 10:12:40 Bag Decanter (2002S) opened to sterile field. 10:12:41 DIAGNOSTIC WIRE .035 260cm J wire (892192) opened to sterile field. 10:12:41 INFLATOR Merit BasixCompak (YF5607) opened to sterile field. 10:12:44 CHOICE PT Extra Support 182cm wire ([id number]) opened to sterile field. 10:12:45 SHEATH 6FR [place] (KUL810) opened to sterile field. 10:16:32 Baseline sample Acquired. 10:25:11 Final Timeout: patient, procedure, and site verified with staff and physician. All members of the team are in agreement. 10:25:13 Right groin site verified by team. 10:25:16 Fire Safety Assessment: A--An alcohol-based skin anteseptic being used preoperatively., C--Open oxygen or nitrous oxide is being used., D--An ESU, laser, or fiber-optic light is being used. 10:25:19 Physical assessment completed. ASA score P 2 - A patient with mild systemic disease as per Mario Alaniz MD. 10:25:21 Sedation plan: IV Moderate Sedation Medication:Versed, Fentanyl 10:25:22 Versed 2 mg I.V. was administered by Teetee Esposito RN; for sedation; 10:25:27 Fentanyl 50 mcg I.V. was administered by Teetee Esposito RN; for sedation; 10:25:29 Zero performed for pressure channel P1 10:26:27 CALLED FOR PCU BED 10:26:36 GUIDE 6FR HS I SH catheter ([id number]) opened to sterile field. 10:27:06 Baseline sample Acquired. 10:27:11 Procedure started. 10:27:14 Local anesthetic to right femoral artery with Lidocaine 2% by Mario Alaniz MD.INITIAL ACCESS ONLY 10:27:20 A 6 Fr Short sheath was inserted into the Right Femoral artery 10:28:08 6 Fr HS I SH guide catheter was inserted over the wire 10:28:53 CHOICE PT ES wire advanced. 10:30:05 Heparin Bolus 4000 units I.V. was administered by Teetee Esposito RN; for anticoagulation; verified with Dr. Alaniz 10:30:18 Integrilin (Bolus 2mg/ml) 5.6 ml I.V. was administered by Teetee Esposito RN; for anticoagulation; wasted 4.4mL 10:30:35 Place stent Inflation Number: 1 A [place] RX 2.0 x 15 stent ([id number]) was prepped and advanced across the Mid RCA. The stent was deployed at 13 ANUM for 0:05 (min:sec). 10:30:45 Plavix 600 mg P.O. was administered by Teetee Esposito RN; for antiplatelet therapy; 10:30:51 Stent catheter was removed intact over wire. 10:32:40 Place stent Inflation Number: 2 A [place] RX 2.25 x 15 stent ([id number]) was prepped and advanced across the Mid RCA. The stent was deployed at 13 ANUM for 0:12 (min:sec). 10:34:47 Nitroglycerin IC/IA 200 mcg I.C. was administered by Mario Alaniz MD; for vasodilation; 10:36:46 Stent catheter was removed intact over wire. 10:36:48 Wire removed. 10:36:49 Guide catheter removed. 10:36:57 Sheath removed intact; hemostasis achieved with Exoseal to the Right Femoral artery. 10:37:02 EXOSEAL 6Fr (EX600) opened to sterile field. 10:37:08 Procedure ended.(Physican Out) 10:38:28 Fluoroscopy time 03.20 minutes. 10:38:32 Flurop Dose total: 135 10:38:32 Fluoroscopy dose: 135 mGy 10:38:35 Contrast amount:Isovue 300 72ml. 10:38:40 Insertion/operative site no bleeding no hematoma. 10:38:43 Post right femoral artery:stable, clean and dry 10:38:48 Post-op/insertion site Right Femoral artery dressed using a 4 x 4 and Tegaderm. 10:38:49 Post Procedure Pulses reassessed and unchanged 10:38:51 Post-procedure physical assessment completed. ASA score P 2 - A patient with mild systemic disease as per Mario Alaniz MD. 10:38:53 Post procedure rhythm: unchanged. 10:38:56 Estimated blood loss: 10 ml 10:39:02 Post procedure instruction explained to patient.Patient verbalizes understanding. 10:39:03 Patient needs reinforcement of post procedure teaching. 10:39:16 Procedure Complication : No complications 10:39:26 Procedure type changed to Cath procedure, PCI procedure, Coronary Stent, Coronary Stent Initial 10:39:27 See physician's report for complete and final results. 10:39:41 Procedure and supply charges have been captured, reviewed, submitted and are correct. 10:40:11 Report given to PCU. 10:40:25 Patient transfered to PCU with Stretcher. 10:41:13 Vital chart was stopped 10:41:14 Procedure ended. 10:41:14 Full Disclosure recording stopped 10:41:18 End room use (Document Last) Intervention Summary Intervention Notes Time ActionType Lesion and Equipment Used Action# Pressure Duration Attributes 10:30:35 Place stent Mid RCA JAMAICA RX 2.0 x 1 13 00:05 15 stent ([id number]) 10:32:40 Place stent Mid RCA [place] RX 2.25 x 2 13 00:12 15 stent ([id number]) Device Usage Item Name Manufacture Quantity Catalog Number Hospital Part Current M inimal Lot# / Charge Number Stock Stock Serial# Code ACIST Syringe Acist 1 03614 309261 781174 334151 2 0 (36306) Medical Systems Inc ACIST Hand Acist 1 19516 671548 158317 306004 5 Control Medical (84951) Systems Inc ACIST Manifold Acist 1 27982 547206 248942 920013 5 (32897) Medical Systems Inc Medline Cath Medline 1 [id number] 521085 71347 424165 5 Pack ([id number]) Bag Decanter Microtek 1 2001S 673149 39602 611917 5 (2001S) Medical Inc. DIAGNOSTIC St Jerry 1 323472 172001 541081 055743 3 0 WIRE .035 260cm J wire (757673) INFLATOR Merit Merit 1 KZ0601 756848 635202 341498 1 5 Rogatemszweitgeist Medical (DE3454) CHOICE PT Stanley 1 [id number] 080668 588376 998910 5 Extra Support Scientific 182cm wire ([id number]) SHEATH 6FR Terumo 1 MOI505 102227 798690 731176 4 0 [place] (JYY381) GUIDE 6FR HS I Medtronic 1 [id number] 110455 81353 051192 1 SH catheter ([id number]) J[place] RX 2.0 x Medtronic 1 [id number] 947438 6211378 750926 5 [id number] 15 stent ([id number]) J[place] RX 2.25 x Medtronic 1 [id number] 509770 7423589 810642 5 [id number] 15 stent ([id number]) EXOSEAL 6Fr Cardinal 1 EX600 988679 237418 282569 1 0 (EX600) Health Signature Audit [place] Stage Time Signature Unsigned Intra-Procedure 04/23/2018 Darleen 10:41:30 AM Counts RT(R) Signatures Monitor : Darleen Signature : Counts RT Date : Time : [address] [address]
[2018-04-23 09:03] VITALS: BP 190/60; BMI 25.3
[2018-04-23 09:14] LABS: BASOPHILS 0.5 % (0-2); EOSINOPHILS 1.2 % (0-7); HEMATOCRIT 41.2 % (36.0-48.0); HEMOGLOBIN 14.3 g/dL (12-16); IMMATURE GRANULOCYTES 0.2 % (0-5); LYMPHOCYTES 17.4 % (15-50); MCH 29.3 pg (26.0-34.0); MCHC 34.7 g/dL (31.0-37.0); MCV 84.4 fL (80.0-100.0); MEAN PLATELET VOLUME 9.6 fL (7.4-10.4); MONOCYTES 7.1 % (2-11); NEUTROPHILS 73.6 % (40-80); PLATELET COUNT 234 10x3/uL (130-400); RBC 4.88 10x6/uL (4.00-5.40); RDW 12.4 % (11.5-14.5); WBC 8.4 10x3/uL (4.8-10.8)
[2018-04-23 09:17] LABS: ANION GAP 13.5 mmol/L (8-16); CALCIUM 9.2 mg/dL (8.5-10.1); CARBON DIOXIDE 29.5 mmol/L (21.0-32.0); CREATININE - SERUM 1.1 mg/dL (0.6-1.3)
--- NOTE | 2018-04-23 11:00 | NUR ---
PT RECEIVED VIA STRETCHER FROM INCENDIARY POWDER MIXER FOR RECOVERY, PT SLEEPING BUT AWAKES TO VERBAL STIMULI. HR NSR RATE 72, BP 170/73, O2 SAT 100 ON 2L/NC. 6 FR EXOCELE TO R GROIN, DRESSING CDI SMALL AREA OF SWELLING NOTED, SOFT TO TOUCH MARKED SITE AND WILL WATCH. PEDAL PULSES PALPABLE, EXTREMITY WARM AND PINK. IV PATENT INFUSING VIA ORDERS. CALL LIGHT IN REACH, INSTRUCTED PT TO LAY FLAT W R LEG STILL AND STRAIGHT,VERBALIZED UNDERSTANDING.
--- NOTE | 2018-04-23 11:06 | NUR ---
R GROIN NOW W MODERATE HEMATOMA, PRESSURE APPLIED TO AREA AND FEM STOP APPLIED, PRESSURE PLACED AT 19. DR BAZEA IN ROOM AND AWARE. DOPPLER USED TO ASSESS PULSE. HR AND BP REMAINED WNL DURING FEM STOP APPLICATION. PT DENIES CHEST PAIN OR DISCOMFORT. CALL LIGHT IN REACH.
--- NOTE | 2018-04-23 11:31 | NUR ---
PT RESTING QUIETLY, SIPS OF WATER GIVEN PER REQUEST. FEM STOP IN PLACE PRESSURE STILL AT 191. HEMATOMA SMALLER IN SIZE. PEDAL PULSES HEARD W DOPPLER. CALL LIGTH IN REACH, AT BEDSIDE. HR 78 BP 164/81.
--- NOTE | 2018-04-23 11:58 | NUR ---
PT REMAINS RESTING COMFORTABLY. FEM STOP IN PLACE, AREA AROUND SOFT, NO BLEEDING NOTED DRESSING CDI. HR 78 NSR. CALL LIGHT IN REACH. DENIES NEEDS OR PAIN.
--- NOTE | 2018-04-23 12:27 | NUR ---
PT PLACED ON BEDPAN, VOIDED SMALL AMOUNT OF YELLOW URINE. FEM STOP PRESSURE REDUCED TO 150. DRESSING REMAINS CDI, PEDAL PULSES PALPABLE. CALL LIGHT IN REACH, AT BEDSIDE. WAITING ON AN INPATIENT BED TO TRANSFER PT.
--- NOTE | 2018-04-23 12:59 | NUR ---
PT RESTING C/O DISCOMFORT IN R LEG DUE TO FEM STOP, PRESSURE REDUCED TO 12O. NO BLEEDING OR SWELLING NOTED TO AREA. CALL LIGHT IN REACH. PEDAL PULSES PALPABLE
--- NOTE | 2018-04-23 13:27 | NUR ---
FEM STOP REMAINS IN PLACE, PRESSURE REDUCED TO 120. PEDAL PULSES PALPABLE. VSS, PT DENIES PAIN OR NEEDS. WILL BE TRANSFERED TO ROOM 2118 FOR OVERNIGHT STAY.
--- NOTE | 2018-04-23 14:00 | NUR ---
PT TRANSFERRED TO ROOM 2118 FOR OVERNIGHT STAY. REPORT GIVEN TO ALE PEREZ TO ASSUME CARE.
--- NOTE | 2018-04-23 14:20 | NUR ---
TRANSFERED FROM HYDROELECTRIC MECHANIC. VS WNL. RIGHT GROIN STABLE WITH FEMSTOP INTACT. OREINTED TO ROOM. CALL LIGHT IN REACH. WILL CONT. PLAN OF CARE.
[2018-04-23 14:33] VITALS: BP 161/68; Ht 154.9 cm; Wt 63.6 kg
[2018-04-23 14:50] VITALS: BP 99/54
[2018-04-23 14:52] VITALS: BP 161/60
--- NOTE | 2018-04-23 15:18 | NUR ---
FEMSTOP REMOVED WITHOUT FURTHER HEMATOMA NOTED.
--- NOTE | 2018-04-23 19:26 | NUR ---
RECIEVED LAYING IN BED WITH EYES CLOSED. AROUSES WITH VERBAL STIMULI. ORIENTED X4. IV TO LEFT FA SL.. DENIES ANY NEEDS AT THIS TIME.
[2018-04-23 21:14] VITALS: BP 122/51
[2018-04-24] VITALS (7 sets, daily range): BP systolic 110–153; BP diastolic 45–72
[2018-04-24 07:45] LABS: BASOPHILS 0.3 % (0-2); EOSINOPHILS 0.9 % (0-7); HEMATOCRIT 34.2 % (36.0-48.0); HEMOGLOBIN 11.8 g/dL (12-16); IMMATURE GRANULOCYTES 0.3 % (0-5); LYMPHOCYTES 16.6 % (15-50); MCH 29.1 pg (26.0-34.0); MCHC 34.5 g/dL (31.0-37.0); MCV 84.4 fL (80.0-100.0); MEAN PLATELET VOLUME 9.2 fL (7.4-10.4); MONOCYTES 9.3 % (2-11); NEUTROPHILS 72.6 % (40-80); PLATELET COUNT 193 10x3/uL (130-400); RBC 4.05 10x6/uL (4.00-5.40); RDW 12.5 % (11.5-14.5); WBC 7.8 10x3/uL (4.8-10.8)
--- NOTE | 2018-04-24 07:53 | NUR ---
PRE-OPS GIVEN. TO REGRADER BY BED.
[2018-04-24 08:03] LABS: ANION GAP 13.7 mmol/L (8-16); CALCIUM 8.5 mg/dL (8.5-10.1); CREATININE - SERUM 0.9 mg/dL (0.6-1.3); POTASSIUM - SERUM 3.7 mmol/L (3.5-5.1)
--- NOTE | 2018-04-24 08:25 | OP ---
PATIENT NAME: ROCKY COLÓN MEDICAL RECORD: [id number] :30 LOCATION:D.M2 D.2118 ADMISSION DATE: SURGEON: ANTIONETTE BAEZA MD DATE OF OPERATION: 04/23/2018 DATE OF SERVICE: 04/23/2018 PROCEDURES: 1. PTCA stent RCA. 2. Selective coronary angiography. DESCRIPTION OF PROCEDURE IN DETAIL: After informed consent was obtained and after a detailed description of risks, benefits as well as alternative therapies, the patient elected to proceed with angiogram and angioplasty. The right femoral area was prepped and draped in normal sterile fashion. Right femoral artery was cannulated via modified Seldinger technique with placement of 6-Bengali sheath. All catheters exchanged through this sheath. FINDINGS: The right coronary has 95% stenosis times 2, this was addressed with a 2.25 x 15 and 2.0 x 15, both [place] stents. Result was 0% residual stenosis. OVERALL IMPRESSION: Successful percutaneous transluminal coronary angioplasty stent of the right coronary artery going from 95% initial stenosis to 0% residual. TRANSINT:[id number] Voice Confirmation ID: [id number] DOCUMENT ID: [id number] ANTIONETTE BAEZA MD at 0825 CC: [id number] DICTATION DATE: 04/23/18 1040 NETWORK FIREWALL ENGINEER: 04/23/18 [address] [place] [address]
--- NOTE | 2018-04-24 08:45 | NUR ---
LEFT GROIN FEMSTOP ON PT AT A PRESSURE OF 130mmHg. LEFT PEDAL PULSE WEAK, BUT PALPABLE. NO BLEEDING OR HEMATOMA NOTED.
--- NOTE | 2018-04-24 09:15 | NUR ---
LEFT GROIN FEMSTOP IN PLACE. NO BLEEDING OR HEMATOMA.
--- NOTE | 2018-04-24 09:45 | NUR ---
FEMSTOP TO LEFT GROIN DECREASED TO 110mmHg. PT TOLERATING WELL. NO BLEEDING/HEMATOMA NOTED.
[2018-04-24] MEDS ORDERED: BAYER CHEWABLE81 MG PO (10:07)
[2018-04-24] MEDS ORDERED: PLAVIX75 MG PO (10:10)
--- NOTE | 2018-04-24 10:15 | NUR ---
FEMSTOP DEC TO 100mmHg. PT TOLERATING WELL. NO BLEEDING/HEMATOMA NOTED. LEFT PEDAL PULSE PALPABLE.
--- NOTE | 2018-04-24 10:44 | NUR ---
PRESCRIPTION CALLED INTO [facility] FOR PLAVIX. SPOKE WITH PHARMACIST
--- NOTE | 2018-04-24 11:07 | NUR ---
CLONIDINE GIVEN FOR SBP 205. WILL CONTINUE TO MONITOR. FEMSTOP TO LEFT GROIN AT 85mmHg AT THIS TIME. NO BLEEDING/HEMATOMA NOTED.
--- NOTE | 2018-04-24 11:20 | NUR ---
DR. BAEZA ROUNDED AND SPOKE WITH PT AND PT'S FAMILY.
--- NOTE | 2018-04-24 11:20 | DS ---
PATIENT:ROCKY RIOS :30 MEDICAL RECORD: [id number] DISCHARGE SUMMARY ADMISSION DATE: 04/23/18 DISCHARGE DATE: DISCHARGE DIAGNOSES: 1. Angina. 2. Coronary artery disease. 3. PTCA and stent of RCA, LAD, and circumflex this admission. 4. Hypertension. 5. Hyperlipidemia. HOSPITAL COURSE: Ms. Rios presented with anginal symptomatology, had 3-vessel coronary artery disease and was recommended bypass surgery. She wanted to defer bypass surgery. We reviewed her film and it was amenable to transcatheter revascularization. She was brought in for PTCA and stent of all 3 vessels. It went uneventfully. She was discharged home to continue the aspirin and Plavix. We will follow up with [facility] in 1 month. TRANSINT:[id number] Voice Confirmation ID: [id number] DOCUMENT ID: [id number] ANTIONETTE BAEZA MD at 1120 CC: [id number] DICTATION DATE: 04/24/18824 SURGICAL GARMENT FITTER: 04/24/18 0905 [facility] [address] [place] [address]
--- NOTE | 2018-04-24 11:24 | NUR ---
LEFT GROIN FEMSTOP WEANED DOWN TO 70mmHg. PT TOLERATING WELL.
--- NOTE | 2018-04-24 11:53 | NUR ---
LEFT GROIN FEMSTOP WEANED DOWN TO 50mmHg. PT TOLERATING WELL. NOW RATES HER PAIN /10. BP 167/66. NO BLEEDING/HEMATOMA NOTED TO LEFT GROIN.
--- NOTE | 2018-04-24 12:20 | NUR ---
LEFT GROIN FEMSTOP REMOVED. NO BLEEDING/HEMATOMA NOTED. PT'S HEAD OF BED INC TO 30 DEGREES. TOLERATED WELL. VSS. SET UP WITH SANDWICH TRAY AND DRINK. PT'S ALSO ASKED FOR SANDWICH. GAVE HIM A TRAY ALSO.
--- NOTE | 2018-04-24 12:43 | NUR ---
LEFT FA PIV D/C'D WITH CATH TIP INTACT. PT TOLERATED WELL. LEFT GROIN DRESSING INTACT. NO NEW BLEEDING OR HEMATOMA NOTED. PT INSTRUCTED TO GET UP AND GET DRESSED. CALLED PHARMACY PER PT'S TO GET CALDERON OF PLAVIX AND TO MAKE SURE IT WAS FILLED.
--- NOTE | 2018-04-24 13:20 | NUR ---
PT SNORING. ATTEMPTED TO WAKE UP. PT WOULD NOT AROUSE TO STERNAL RUB. DID PLACE HER ON MONITOR. SHE WAS TACHYCARDIC AT 108 ATRIALLY PACED. BP 87/37. PLACED 22 G PIV TO RIGHT AC. CALLED DR. BAEZA AND ORDERS RECEIVED FOR NS BOLUS.
--- NOTE | 2018-04-24 13:25 | NUR ---
500CC NS BOLUS STARTED. NO HEMATOMA NOTED TO LEFT OR RIGHT GROIN. PT DOES GRIMACE TO STERNAL RUB, BUT IS NOT FOLLOWING COMMANDS. PT'S SPOUSE AT BEDSIDE. DR. BAEZA AT BEDSIDE. GETTING [facility] LAB DRAWN
--- NOTE | 2018-04-24 13:49 | NUR ---
PT OPENS EYES BUT STATES "I'M SO TIRED" AND THEN WILL DOZE BACK OFF.
[2018-04-24 13:53] LABS: BASOPHILS 0.3 % (0-2); EOSINOPHILS 0.5 % (0-7); HEMATOCRIT 28.5 % (36.0-48.0); HEMOGLOBIN 9.8 g/dL (12-16); IMMATURE GRANULOCYTES 0.1 % (0-5); LYMPHOCYTES 10.1 % (15-50); MCH 29.1 pg (26.0-34.0); MCHC 34.4 g/dL (31.0-37.0); MCV 84.6 fL (80.0-100.0); MEAN PLATELET VOLUME 9.2 fL (7.4-10.4); MONOCYTES 8.5 % (2-11); NEUTROPHILS 80.5 % (40-80); PLATELET COUNT 173 10x3/uL (130-400); RBC 3.37 10x6/uL (4.00-5.40); RDW 12.5 % (11.5-14.5); WBC 9.6 10x3/uL (4.8-10.8)
--- NOTE | 2018-04-24 14:03 | NUR ---
LAB RESULTS AND CURRENT VITAL SIGNS CALLED TO DR. BAEZA. HIS NURSE TOOK A MESSAGE AND WILL UPDATE DR. BAEZA AND CALL ME BACK WITH ORDERS.
--- NOTE | 2018-04-24 14:08 | NUR ---
DR. BAEZA RETURNED CALL. ORDERS RECEIVED FOR ADMIT TO CVICU, REPEAT H AND H IN 2 HOURS, AND TYPE AND SCREEN.
--- NOTE | 2018-04-24 14:29 | NUR ---
REPORT CALLED TO ELIZABETH MORA RN. PT'S FAMILY UPDATED ON PLAN OF CARE.
--- NOTE | 2018-04-24 14:32 | NUR ---
HR 65 BP 107/47. PT MORE ALERT.
--- NOTE | 2018-04-24 15:01 | NUR ---
PT VOIDED IN BEDPAN APPROX 250CC OF YELLOW URINE. PT ALERT AND ORIENTED.
--- NOTE | 2018-04-24 15:30 | NUR ---
PT ARRIVED FROM THE TICKET PULLER. PT HOOKED TO ICU MONITORS. ATRIALLY PACED (65) ON THE MONITOR. VSS. 2L VIA NC. LEFT CHEST PERMANENT PACEMAKER NOTED. IV NOTED TO RIGHT AC. PATENT. DRESSING C/D/I. SEE IV FLOW SHEET. BILATERAL GROIN DRESSING C/D/I. MODERATE AMOUNT OF BRUISING NOTED TO THE RIGHT GROIN. BILATERAL DORALIS PEDIS PULSES PALPABLE. PT DENIES PAIN. CALL LIGHT IN REACH. WILL COINT POC.
[2018-04-24 16:11] LABS: HEMATOCRIT 35.6 % (36.0-48.0); HEMOGLOBIN 12.3 g/dL (12-16)
--- NOTE | 2018-04-24 16:34 | OP ---
PATIENT NAME: ROCKY COLÓN MEDICAL RECORD: [id number] :30 LOCATION:[place] D.CV08 ADMISSION DATE:04/24/18 SURGEON: ANTIONETTE BAEZA MD DATE OF OPERATION: 04/24/2018 PROCEDURES: 1. PTCA stent left circumflex. 2. PTCA stent LAD. 3. Selective coronary angiography. 4. Aortofemoral runoff. 5. Abdominal aortography. INDICATION: Angina, coronary artery disease, claudication, and peripheral vascular disease. PROCEDURE IN DETAIL: After informed consent was obtained and after a detailed description of risks, benefits as well as alternative therapies, the patient elected to proceed with angiogram and angioplasty. The left femoral area was prepped and draped in normal sterile fashion. Left femoral artery was cannulated via modified Seldinger technique with placement of 6-Monegasque sheath. All catheters exchanged through this sheath. FINDINGS: The left anterior descending has 80% to 90% stenosis in the proximal mid vessel. This was addressed with a 2.5 x 26 mm Dylan. Result was 0% residual stenosis. The left circumflex has 80+ percent stenosis of the first obtuse marginal, this was addressed with a 2.5 x 14 mm Rayle. Result was 0% residual stenosis. Abdominal aortography was performed. The catheter was pulled down for aortofemoral runoff. Abdominal aortography reveals no significant abdominal aortic disease, no dissection or annulus formation. No renal artery stenosis. RIGHT LEG: A. Iliac: The common internal and external iliacs have moderate calcification, only mild significant disease, no stenosis greater than 20% to 30%. B. Femoral system: The common superficial and deep femoral have mild irregularities, but no flow-limiting stenosis. No stenosis greater than 20%. C. Popliteal and infrapopliteal vessels are patent, mildly diffusely diseased, but there is 3-vessel runoff to the foot. LEFT LEG: A. Iliac: The common internal and external iliacs have moderate calcification, only mild significant disease, no stenosis greater than 20% to 30%. B. Femoral system: The common superficial and deep femoral have mild irregularities, but no flow-limiting stenosis. No stenosis greater than 20%. C. Popliteal and infrapopliteal vessels are patent, mildly diffusely diseased, but there is 3-vessel runoff to the foot. OVERALL IMPRESSION: 1. Successful percutaneous transluminal coronary angioplasty stent of the left anterior descending and circumflex, both going from 80% to 90% initial stenosis to 0% residual stenosis. 2. No significant peripheral vascular disease is present. Leg pain is not due to arterial vascular insufficiency. OPERATIVE REPORT [id number] ROCKY COLÓN J TRANSINT:[id number] Voice Confirmation ID: [id number] DOCUMENT ID: [id number] ANTIONETTE BAEZA MD at 1634 CC: [id number] DICTATION DATE: 04/24/18823 GASTROENTEROLOGY NURSE: 04/24/18 0914 ADM IN [facility] [address] [id number]
--- NOTE | 2018-04-24 19:30 | NUR ---
REPORT RECEIVED, ASSESSMENT PER FLOW SHEET, PT SLEEPING WAKES WITH MINIMAL STEMULI, MEDS INFUSING PER ORDERS, BILAT GROIN SITES C/D/I, PPP, VSS ON CM, NO ACUTE S/S ODF DISTRESS, WILL CONTINUE TO ASSESS
--- NOTE | 2018-04-24 21:00 | NUR ---
PT ASSISTED TO BEDSIDE COMMODE, CLEAR YELLOW VOID, CLEANED DIO AREA, ASSISTED BACK IN BED, REPOSITIONED FOR COMFORT, SCD'S ATTACHED AND FUNCTIONING, CL AND BEDSIDE TABLE IN REACH, VSS, PT DENIES PAIN OR OTHER NEEDS AT THIS TIME, WILL CONTINUE TO MONITOR
--- NOTE | 2018-04-24 23:00 | NUR ---
REASSESSMENT COMPLETED PER FLOW SHEET, NO ACUTE CHANGES FROM PRIOR ASSESSMENT, PT DENIES PAIN, REPOSITIONED FOR COMFORT, VSS, WILL CONTINUE TO ASSESS
--- NOTE | 2018-04-25 01:00 | NUR ---
PT ASSISTED TO BEDSIDE COMMODE, CLEAR YELLOW VOID NOTED, ASSISTED BACK TO BED, REPOSITIONED FOR COMFORT, VSS, WILL CONTINUE TO ASSESS
--- NOTE | 2018-04-25 03:10 | NUR ---
PT REQUESTED TO BE PLACED ON BEDPAN, PT PLACED AND REMOVED FROM BEDPAN WITH ASSIST FROM FEMALE NURSE ADAM, CLEAR YELLOW VOID NOTED IN BEDPAN, PT REPOSITIONED FOR COMFORT, PT DENIES PAIN OR NEEDS AT THIS TIME, VSS, WILL CONTINUE TO ASSESS
[2018-04-25 07:00] VITALS: BP 115/49
--- NOTE | 2018-04-25 07:30 | NUR ---
SHIFT REPORT RECEIVED. EYES CLOSED. AROUSES TO VOICED. ON ROOM AIR. HAS R-AC PIV WIHT NS AT 100ML/HR. DRESSING ON RIGHT GROIN. BRUISING NOTED AT SITE. L-GROIN DRESSING SCAN AMOUNT OF DRAINAGE NOTED. MINIMAL BRUISING NOTED. PT AMBULATED TO BATHROOM AT THIS TIME WITH MINIMAL ASSIST. NO FURTHER NEEDS. WILL CONTINUE TO MONITOR.
--- NOTE | 2018-04-25 08:23 | NUR ---
SPOKE WITH DR. BAEZA. PT HAS BEEN STABLE ALL NIGHT. CAN GO HOME PER DR. BAEZA'S ORDERS.
--- NOTE | 2018-04-25 09:56 | NUR ---
DISCHARGE INTRUCTIONS REVIEWED WITH PT AND . COPY OF DISCHARGE INSTRUCTIONS GIVEN TO PT. R-AC PIV DC'D WITH CATHETER TIP INTACT. WHEELED OUT TO PERSONAL VEHICLE VIA WHEELCHAIR. PERSONAL BELONGINGS SENT WITH PT INCLUCING GLASSES AND CELL PHONE.
--- NOTE | 2018-04-25 16:04 | MORECARE ---
CASE MANAGEMENT DISCHARGE SUMMARY PATIENT: ROCKY COLÓN UNIT: [id number] ADM DATE: 04/24/18 AGE: 87 : 30 SEX: F ROOM/BED: [facility] AUTHOR: GILMA SPAIN PHYSICIAN: REFERRING PHYSICIAN: ANTIONETTE BAEZA MD DATE OF SERVICE: 04/25/18 Discharge Plan Patient Name: ROCKY COLÓN Facility: [facility]:Calvin : 1930 Planned Disposition: Home Anticipated Discharge Date: Discharge Date: 04/25/2018 Expected LOS: Initial Reviewer: [id number] Initial Review Date: 04/25/2018 Generated: 04/25/18 5:04 pm Comments DCP- Discharge Planning Updated by [email or web address]: Eboni Morales on 04/25/18 3:[address] Late Entry 04/25/18 @ 0938 Patient Name: ROCKY COLÓN Admission Status: Elective Accout number: [id number] Admission Date: 04-24-2018 : 1930 Admission Diagnosis: Attending: KAYA BAEZA Current LOS: 1 Anticipated DC Date: Planned Disposition: Home Primary Insurance: [employer] PPO MCR [facility] Discharge Planning Comments: CM met with patient at bedside as she was getting ready to discharge. Patient stated that she lives with her . She denies any discharge needs @ this time. IMM explained and served 04/25/18 @ 0938. CM will continue to follow and assist as needed with discharge planning / needs. [employer] Certified Network Associate: Eboni Morales Coverage Notice Reviewer: [id number] - Eboni Morales Notice Issued Date-Time: 04/25/2018 9:38 Notice Type: IM Discharge Notice Notice Delivered To: Patient Relationship to Patient: Self Assembler Cards And Announcements Name: Delivery Method: HAND - Hand Delivered Staci Days: Prior Verbal Notification: Recipient Understood Notice: Yes Recipient Signature: Yes Med Rec Note Co-signed by Attending: Coverage Notice Comment: Patient Name: ROCKY COLÓN Page [id number] at 1604 All edits/amendments must be made on the electronic document DICTATION DATE: 04/25/18 1603 FILTERS ASSEMBLER: JENNIFFER 04/25/18 1603 RPT#: [id number] DC DATE:04/25/18 STATUS: DIS IN [facility] [address] [place] [address] END OF REPORT
--- NOTE | 2018-04-29 11:45 | DS ---
PATIENT:ROCKY RIOS :30 MEDICAL RECORD: [id number] DISCHARGE SUMMARY ADMISSION DATE: 04/24/18 DISCHARGE DATE: 04/25/18 DATE OF SERVICE: 04/25/2018 DIAGNOSES: 1. Angina. 2. Coronary artery disease. 3. Percutaneous transluminal coronary angioplasty stent right coronary artery, left anterior descending, and circumflex this admission. 4. Hypertension. 5. Hyperlipidemia. 6. Paroxysmal atrial fibrillation, controlled in sinus rhythm on sotalol. HOSPITAL COURSE: Mrs. Rios presents with anginal symptomatology and underwent catheterization revealing severe 3-vessel coronary artery disease. She met with cardiac surgery and decided against this. We did 3-vessel PTCA stent. She had an uneventful postop course and was discharged home with the addition of aspirin and Plavix to her medical regimen. She will follow up with [facility] in 1 month. TRANSINT:[id number] Voice Confirmation ID: [id number] DOCUMENT ID: [id number] ANTIONETTE BAEZA MD at 1145 CC: [id number] DICTATION DATE: 04/25/18 08 EYELET MACHINE OPERATOR: 04/25/18 2354 DIS IN 04/25/18 [facility] [address] [place] [address]
== END 2018-04-25 09:59 | disposition home or self-care (01) | DRG 246 ==
LOC: D.M2 08:06 → D.CATH 08:06 → D.M2 14:00 → D.CLR 04-24 08:35 → D.CATH 04-24 14:37 → D.CVICU 04-24 14:38
PROVIDERS: ADMIT Internal Medicine Interventional Cardiology
PROC: 027035Z Dilation of Coronary Artery, One Artery with Two Drug-eluting Intraluminal Devices, Percutaneous Approach (ICD-10-PCS; principal; 2018-04-23 10:00)
PROC: 027135Z Dilation of Coronary Artery, Two Arteries with Two Drug-eluting Intraluminal Devices, Percutaneous Approach (ICD-10-PCS; 2018-04-24 07:30)
DX: I95.9 Hypotension, unspecified (principal); I25.110 Atherosclerotic heart disease of native coronary artery with unstable angina pectoris; I10 Essential (primary) hypertension; E78.5 Hyperlipidemia, unspecified; I48.0 Paroxysmal atrial fibrillation; M79.606 Pain in leg, unspecified